=== PATIENT | female | born 2000 | race Hispanic/Latino ===

== ENCOUNTER 2019-02-04 19:17 | Emergency (ER) | payer SELFPAY ==
--- NOTE | 2019-02-04 19:57 | RAD ---
LEFT FOOT THREE VIEWS: 02/04/19 HISTORY: Trauma to foot. There is no sign of fracture, dislocation or other bony findings. IMPRESSION: Negative left foot. POS: [facility]
== END 2019-02-04 21:15 | disposition home or self-care (01) ==
LOC: ERS 19:17
DX: S90.32XA Contusion of left foot, initial encounter (principal); Y04.0XXA Assault by unarmed brawl or fight, initial encounter